=== PATIENT | female | born 2000 | race Caucasian/White ===

== ENCOUNTER 2023-02-04 09:30 | Outpatient (CLI) | payer MEDICAID ==
[2023-02-04] VITALS (17 sets, daily range): BP systolic 83–131; BP diastolic 53–102
[~2023-02-04 09:30] MED LIST: DOCU-28 PO; NO HOME MEDS; ONDA8TAB13 PO; PANT-47 PO
== END 2023-02-04 23:59 | disposition home or self-care (01) ==
LOC: CARD DIAG 09:30
PROVIDERS: ATTEND Physician Assistant Medical
DX: R55 Syncope and collapse (principal)
CPT/HCPCS: 93660